=== PATIENT | female | born 1975 | race Caucasian/White ===

== ENCOUNTER 2019-09-20 12:58 | Emergency (ER) | payer OTHER ==
--- OUTSIDE RECORDS SUMMARY | 2019-09-20 13:21 | XMS REPORT | Continuity of Care Document ---
:1975 External Reference #:[id number] Author Name AMALIA Braun (transmitted by agent of provider Connie Robbins) Address [address] [place] [address] Care Team Providers Name Role Phone Jon Arzate MD - Family Medicine Care Team Information Machine Cloth Measurer Ankita Godinez FNP - Family Care Team Information Machine Cloth Measurer [phone] Morenita Aguilar F.N.P. - Family Care Team Information Machine Cloth Measurer Problems Active Problems Provider Date Chronic polyarticular juvenile rheumatoid Kamar Dominguez M.D. Onset: 2011 arthritis Myalgia & Myositis Unspecified Kamar Dominguez M.D. Onset: 09/14/2012 Medications Prison (Current) Use Encounter Kamar Dominguez M.D. Onset: Dyssomnia Gabriella Couch MD Onset: 12/20/2014 Restless legs Gabriella Couch MD Onset: 12/20/2014 Taking medication AMALIA Braun Onset: 12/31/2014 Obstructive sleep apnea syndrome Gabriella Couch MD Onset: 02/05/2015 Social History Type Date Description Comments Sex Unknown Tobacco Use Start: Unknown Never Smoked Cigarettes Smoking Status Reviewed: 09/11/19 Never Smoked Cigarettes ETOH Use Occasionally consumes alcohol Tobacco Use Start: Unknown Patient has never smoked Recreational Drug Use Denies Drug Use Exercise Type/Frequency Exercises regularly Allergies, Adverse Reactions, Alerts Active Allergies Reaction Severity Comments Date Penicillin 02/18/2011 steroids tachycardia 02/18/2011 Medications Active Medications SIG Qnty Indications Ordering Provider Date Prednisone take 2 tablets 28tabs M06.09 Chata Gaylek, 09/11/2019 5mg Tablets once daily for 1 [employer] week then 1 tablet once daily for 2 weeks than d/c Methotrexate Take 5 Tablets 20tabs M06.09 Chata Mcclain, 08/10/2018 2.5mg By Mouth Every [employer] Tablets Week Z79.899 Fluocinonide twice a day as 15gm R21 Chata Mcclain, 07/02/2014 0.05% Cream needed for rash [employer] Lyrica 1-2 tab po qday 30caps M79.7 Chata Mcclain, 12/14/2013 50mg Capsules [employer] Restasis instill 1 drop 30units M35.00 Chata Mcclain, 02/18/2011 0.05% Emulsion in both eyes [employer] twice a day Folic Acid take 1 tablet 90tabs Z79.899 Chata Gaylek, 02/18/2011 1mg Tablets daily [employer] Hydroxychloroquine Sulfate Take One Tablet 180tabs M06.09 Chata Gaylek, 02/18/2011 200mg By Mouth Twice A [employer] Tablets Day Z79.899 Oxaprozin take one tablet by 60tabs M08.3 [facility] [employer] 02/18/2011 600mg Tablets mouth twice a day as needed Z79.899 M06.09 Turmeric take one capsule/tablet daily Unknown 500mg Capsules by mouth Bupropion HCL ER Unknown 300mg Tablets ER 12HR Desonide Unknown 0.05% Cream Fish Oil 1 by mouth every day Unknown 1000mg Capsules Vitamin D-3 1 by mouth every day Unknown 1000Unit Capsules Claritin 1 by mouth every day as needed Unknown 10mg Capsules Ibuprofen 1 by mouth three times a day Unknown 600mg Tablets as needed Multi Vitamin 1 po qd 30tabs Unknown Tablets Clonazepam 1 po bid 60tabs Unknown 0.5mg Tablets Immunizations CPT Code Status Date Vaccine Lot # [id number] Given 09/11/2019 Influenza Virus Vaccine, Quadrivalent, Split, [id number] Preservative Free 84918 Given 09/05/2017 Influenza Virus Vaccine, Quadrivalent, Split, Preservative Free 15813 Given 08/11/2016 Influenza Virus Vaccine, Quadrivalent, Split, [id number] Preservative Free 64837 Given 09/05/2013 Flu Vaccine Split Virus Preservative Free For Indiv 3Yr Older Vital Signs Date Vital Result Comment 09/11/2019 2:32pm Weight 141.00 lb Heart Rate 88 /min BP Systolic Sitting 115 mmHg right arm reg cuff BP Diastolic Sitting 69 mmHg right arm reg cuff O2 % BldC Oximetry 100 % room air 04/10/2019 4:10pm Heart Rate 90 /min Results Test Date Facility Test Result H/L Range Note CBC Auto 07/07/2019 [facility] White Blood 3.8 10^3/uL Normal 3.5-10.[address] [place] [address] [phone] Red Blood Count 4.69 10^6/uL Normal 3.70-4.87 Hemoglobin 15.5 g/dL Normal 12.0-16.0 Hematocrit 45 % Normal 35-47 Mean Corpuscular Volume 97 fL Normal 80-97 Mean Corpuscular Hemoglobin 33 pg High 27-31 Mean Corpuscular HGB Conc 34 g/dL Normal 31-36 Red Cell Distribution Width 14 % Normal 10-15 Platelet Count 196 10^3/uL Normal 150-450 Mean Platelet Volume 9.0 fL Normal 7.4-10.4 Abs Neutrophils 2.1 10^3/uL Normal 1.5-7.7 Abs Lymphocytes 1.2 10^3/uL Normal 1.0-4.8 Abs Monocytes 0.4 10^3/uL Normal 0-0.8 Abs Eosinophils 0.0 10^3/uL Normal 0-0.6 Abs Basophils 0.0 10^3/uL Normal 0-0.2 Abs Nucleated RBC 0.0 10^3/uL Granulocyte % 56.3 % Lymphocyte % 30.9 % Monocyte % 11.3 % Eosinophil % 1.1 % Basophil % 0.4 % Nucleated Red Blood Cells % 0.0 Comp Metabolic 07/07/2019 [facility] Sodium 139 mmol/L Normal 135-[address] [place] [address] [phone] Potassium 4.2 mmol/L Normal 3.5-5.0 Chloride 104 mmol/L Normal 101-111 Co2 Carbon Dioxide 31 mmol/L Normal 22-32 Anion Gap 4 mmol/L Normal 2-11 Glucose 68 mg/dL Low 70-100 Blood Urea Nitrogen 13 mg/dL Normal 6-24 Creatinine 0.86 mg/dL Normal 0.51-0.95 BUN/Creatinine Ratio 15.1 Normal 8-20 Calcium 9.8 mg/dL Normal 8.6-10.3 Total Protein 6.1 g/dL Low 6.4-8.9 Albumin 4.1 g/dL Normal 3.2-5.2 Globulin 2.0 g/dL Normal 2-4 Albumin/Globulin Ratio 2.1 Normal 1-3 Total Bilirubin 0.50 mg/dL Normal 0.2-1.0 Alkaline Phosphatase 31 U/L Low 34-104 Alt 23 U/L Normal 7-52 Ast 26 U/L Normal 13-39 Egfr Non- 71.0 >60 Egfr 86.0 >60 1 Laboratory test 07/07/2019 [facility] C Reactive < 1.00 Normal <8.01 [address] Protein mg/[place] [address] [phone] Erythrocyte Sed Rate 4 mm/Hr Normal 0-19 3 CBC W/Auto 04/06/2019 [facility] White Blood 5.3 10^3/uL Normal 3.5-10.[address] [place] [address] [phone] Red Blood Count 4.44 10^6/uL Normal 3.70-4.87 Hemoglobin 14.6 g/dL Normal 12.0-16.0 Hematocrit 43 % Normal 35-47 Mean Corpuscular Volume 97 fL Normal 80-97 Mean Corpuscular Hemoglobin 33 pg High 27-31 Mean Corpuscular HGB Conc 34 g/dL Normal 31-36 Red Cell Distribution Width 14 % Normal 10.5-15 Platelet Count 218 10^3/uL Normal 150-450 Mean Platelet Volume 8.5 fL Normal 7.4-10.4 Abs Neutrophils 3.4 10^3/uL Normal 1.5-7.7 Abs Lymphocytes 1.4 10^3/uL Normal 1.0-4.8 Abs Monocytes 0.4 10^3/uL Normal 0-0.8 Abs Eosinophils 0.0 10^3/uL Normal 0-0.6 Abs Basophils 0.0 10^3/uL Normal 0-0.2 Abs Nucleated RBC 0.0 10^3/uL Granulocyte % 64.3 % Lymphocyte % 26.9 % Monocyte % 7.9 % Eosinophil % 0.6 % Basophil % 0.3 % Nucleated Red Blood Cells % 0.0 CMP Panel 04/06/2019 [facility] Sodium 138 mmol/L Normal 135- [address] [place] [address] [phone] Potassium 4.2 mmol/L Normal 3.5-5.0 Chloride 106 mmol/L Normal 101-111 Co2 Carbon Dioxide 29 mmol/L Normal 22-32 Anion Gap 3 mmol/L Normal 2-11 Glucose 81 mg/dL Normal 70-100 Blood Urea Nitrogen 10 mg/dL Normal 6-24 Creatinine 0.88 mg/dL Normal 0.51-0.95 BUN/Creatinine Ratio 11.4 Normal 8-20 Calcium 9.4 mg/dL Normal 8.6-10.3 Total Protein 6.4 g/dL Normal 6.4-8.9 Albumin 4.3 g/dL Normal 3.2-5.2 Globulin 2.1 g/dL Normal 2-4 Albumin/Globulin Ratio 2.0 Normal 1-3 Total Bilirubin 0.40 mg/dL Normal 0.2-1.0 Alkaline Phosphatase 33 U/L Low 34-104 Alt 26 U/L Normal 7-52 Ast 29 U/L Normal 13-39 Egfr Non- 69.2 >60 Egfr 83.7 >60 4 Laboratory test 04/06/2019 [facility] C Reactive < 1.00 Normal <8.[address] Protein mg/[place] [address] [phone] Erythrocyte Sed Rate 1 mm/Hr Normal 0-19 1 Because ethnic data is not always readily available, this report includes an eGFR for both -Americans and non- Americans. The National Kidney Disease Education Program (NKDEP) does not endorse the use of the MDRD equation for patients that are not between the ages of 18 and 70, are , have extremes of body size, muscle mass, or nutritional status, or are non- or non-. According to the National Kidney Foundation, irrespective of diagnosis, the stage of the disease is based on the level of kidney function: Stage Description GFR(mL/min/1.73 m(2)) 1 Kidney damage with normal or decreased GFR 90 2 Kidney damage with mild decrease in GFR 60-89 3 Moderate decrease in GFR 30-59 4 Severe decrease in GFR 15-29 5 Kidney failure <15 (or dialysis) 2 ORDERED [id number] EXPIRES [id number] 3 ORDERED [id number] EXPIRES [id number] 4 Because ethnic data is not always readily available, this report includes an eGFR for both -Americans and non- Americans. The National Kidney Disease Education Program (NKDEP) does not endorse the use of the MDRD equation for patients that are not between the ages of 18 and 70, are , have extremes of body size, muscle mass, or nutritional status, or are non- or non-. According to the National Kidney Foundation, irrespective of diagnosis, the stage of the disease is based on the level of kidney function: Stage Description GFR(mL/min/1.73 m(2)) 1 Kidney damage with normal or decreased GFR 90 2 Kidney damage with mild decrease in GFR 60-89 3 Moderate decrease in GFR 30-59 4 Severe decrease in GFR 15-29 5 Kidney failure <15 (or dialysis) Procedures Date Code Description Status 06/12/2009 [id number] Diabetic Foot Exam Completed Medical Devices Description No Information Available Encounters Type Date Location Provider Dx Diagnosis Office Visit 04/10/2019 Rheumatology Chata Mcclain, M06.09 Rheumatoid 3:[facility] arthritis w/o rheumatoid factor, multiple sites Z79.899 Other terminal operations manager (current) drug therapy R00.0 Tachycardia, unspecified F41.9 Anxiety disorder, unspecified M35.00 Sicca syndrome, unspecified M25.562 Pain in left knee Assessments Date Code Description Provider 09/11/2019 M35.00 Sicca syndrome, unspecified CHRISTOPHE BraunP 09/11/2019 M79.7 Fibromyalgia AMALIA Braun 09/11/2019 M25.562 Pain in left knee CHRISTOPHE BraunP 09/11/2019 M54.2 Cervicalgia CHRISTOPHE BraunP 09/11/2019 M25.579 Pain in unspecified ankle and joints of AMALIA Braun unspecified foot 09/11/2019 Z79.899 Other terminal operations manager (current) drug therapy Chata Mcclain, [employer] 09/11/2019 Z23 Encounter for immunization Chata Mcclain, [employer] 04/10/2019 M06.09 Rheumatoid arthritis without rheumatoid factor, Chata Mcclain, [employer] multiple sit 04/10/2019 Z79.899 Other terminal operations manager (current) drug therapy Chata Mcclain, [employer] 04/10/2019 R00.0 Tachycardia, unspecified Chata Mcclain, [employer] 04/10/2019 F41.9 Anxiety disorder, unspecified Chata Mcclain, [employer] 04/10/2019 M35.00 Sicca syndrome, unspecified Chata Mcclain, [employer] 04/10/2019 M25.562 Pain in left knee JennamendelAMALIA Gamble Plan of Treatment Future Appointment(s):12/18/2019 3:30 pm - MarlyAMALIA Gamble at [facility]09/11/2019 - Chata McclainCHRISTOPHEPM35.00 Sicca syndrome, qrnmjntahqdU80.7 PdsprakyashwG25.562 Pain in left kneeNew Therapy:Physical TherapyComments:Will get xrays if the PT is not opgidpukwN10.2 CervicalgiaComments:Cold treatment: has a number of physiologic effects that are therapeutic. Local application of cold causes vasoconstriction, lowers cell metabolism, decreases extensibility of collagen tissue, decreases muscle contractility, decreases nerve conduction velocity, and increases the pain threshold. The spasticity of the muscle is reduced because local cold affects the muscle spindle's responsiveness to stretching. Local cold also has a direct effect on the conduction velocities of the afferent and efferent fibers, which further decreases muscle spasm.M25.579 Pain in unspecified ankle and joints of unspecified footReferral:Cyn Doshi DPM, FpxbvnsgtpS05.899 Other terminal operations manager (current) drug [id number] Encounter for immunization Functional Status Description No Information Available Mental Status Description No Information Available Referrals Refer to Reason for Referral Status Appt Date Cyn Doshi DPM Created [address] [address] [phone]
--- NOTE | 2019-09-20 14:28 | ED ---
Neck Pain - HPI Summary HPI Summary: Patient is a 44-year-old female who presents emergency Department with complaints of neck pain, paresthesias and arm weakness. Patient notes that she has had issues with her neck in the past and has had injections in the pain clinic. Patient states over the last few days neck pain has increased she's noticed that her arms are weak. Patient also has history of rheumatoid arthritis and is currently on methotrexate. Patient states she recently had an RA flare and was on a course of prednisone last week. Patient states prednisone was given her tachycardia so she discontinued it. Patient otherwise denies recent illness, fever, headache, chest pain, shortness of breath. Symptoms are moderate in severity. No current modifying factors. - History of Current Complaint Chief Complaint: EDExtremityUpper Stated Complaint: PAIN AND NUMBNESS IN RT ARM/LEFT HAND PER PT Time Seen by Provider: 09/20/19 13:54 Hx Obtained From: Patient Pain Intensity: 6 - Allergies/Home Medications Allergies/Adverse Reactions: Allergies Allergy/AdvReac Type Severity Reaction Status Date / Time Penicillins Allergy Unknown Verified 09/20/19 14:16 Reaction Details prednisone Allergy Tachycardia Verified 09/20/19 13:05 Home Medications: Home Medications BuPROPion XL* [Bupropion XL*] 300 mg PO DAILY 09/20/19 [History Confirmed ] Folic Acid TAB* [Folvite TAB*] 1 mg PO DAILY 09/20/19 [History Confirmed ] Hydroxychloroquine TAB* [Plaquenil TAB*] 200 mg PO BID 09/20/19 [History Confirmed 09/20/19] Methotrexate TAB* 12.5 mg PO WEEKLY 09/20/19 [History Confirmed 09/20/19] Oxaprozin [Daypro] 600 mg PO BID 09/20/19 [History Confirmed 09/20/19] Pregabalin CAP(*) [Lyrica CAP(*)] 50 mg PO DAILY 09/20/19 [History Confirmed ] clonazePAM TAB(*) [KlonoPIN TAB(*)] 0.5 mg PO BID PRN 09/20/19 [History Confirmed 09/20/19] predniSONE TAB* [Deltasone TAB*] 5 mg PO DAILY 09/20/19 [History Confirmed 09/20] PMH/Surg Hx/FS Hx/Imm Hx Previously Healthy: Yes Neurological History: Reports: Other Neuro Impairments/Disorders - RA - Cancer History Hx Chemotherapy: No Hx Radiation Therapy: No Infectious Disease History: No Infectious Disease History: Denies: Traveled Outside the [place] in Last 30 Days - Family History Known Family History: Positive: Non-Contributory - Social History Occupation: Employed Full-time Lives: With Family Alcohol Use: Weekly Substance Use Type: Reports: None Smoking Status (MU): Never Smoked Tobacco Review of Systems Constitutional: Negative Negative: Fever Eyes: Negative Cardiovascular: Negative Respiratory: Negative Gastrointestinal: Negative Positive: Other - neck pain Skin: Negative Negative: Rash Positive: Weakness, Paresthesia All Other Systems Reviewed And Are Negative: Yes Physical Exam Triage Information Reviewed: Yes Vital Signs On Initial Exam: Initial Vitals Temp Pulse Resp BP Pulse Ox 97.3 F 101 18 185/98 99 09/20/19 13:04 09/20/19 13:04 09/20/19 13:04 09/20/19 13:04 09/20/19 13:04 Vital Signs Reviewed: Yes Appearance: Positive: Well-Appearing - Patient sitting in chair in no acute distress. Pleasant. Skin: Positive: Warm, Dry Head/Face: Positive: Normal Head/Face Inspection Eyes: Positive: Normal, EOMI, MATT Neck: Positive: Supple, Other: - Midline and paraspinal tenderness noted. Tylenol Respiratory/Lung Sounds: Positive: Clear to Auscultation, Breath Sounds Present Cardiovascular: Positive: Normal, RRR Musculoskeletal: Positive: Other - Good palpable bilateral radial pulse. 3 out of 5 strength in bilateral upper extremities. No sensory deficits. Neurological: Positive: Normal, CN Intact II-III Procedures - Sedation Patient Received Moderate/Deep Sedation with Procedure: No Diagnostics - Vital Signs Vital Signs Temp Pulse Resp BP Pulse Ox 09/20/19 13:04 97.3 F 101 18 185/98 99 - Laboratory Result Diagrams: 09/20/19 15:10 09/20/19 15:10 Lab Statement: Any lab studies that have been ordered have been reviewed, and results considered in the medical decision making process. Neck Course/Dx - Course Course Of Treatment: Patient present with a history of rheumatoid arthritis, neck pain and weakness and paresthesias to arms. Case discussed with Dr. Abarca who recommends MRI of cervical spine to evaluate for potential cardiac compression, epidural abscess given history of methotrexate and arm weakness. Basic labs and appointment her markers were discussed as well. IMPRESSION: Degenerative disc disease at multiple levels. At C4-C5 spondylitic ridge. flattens the thecal sac with no foraminal stenosis. At C5-C6 spondylitic ridge with right uncovertebral hypertrophy results in mild spinal. stenosis and right foraminal stenosis. At C6-C7 spondylitic ridge with right uncovertebral joint hypertrophy results in mild. central stenosis and right foraminal stenosis. Degenerative disc disease at C7-T1. Labs are unremarkable. Pt. states she has had medrol dose pack in the past and has tolerated it better than prednisone. Will place on medrol and flexeril. Advised warm compresses. To f.u with her RA physician for pain clinic or neurosx referal. Will return to ER if sxs change or worsen. pt. understands and agrees with plan. - Diagnoses Differential Dx/HQI/PQRI: Positive: Arthritis, Cervical Fracture, Dystonia, Sprain, Strain Provider Diagnoses: Cervical radiculopathy, Central stenosis of spinal canal Discharge ED - Sign-Out/Discharge Documenting (check all that apply): Patient Departure - Discharge Plan Condition: Good Disposition: HOME Prescriptions: Cyclobenzaprine TAB* [Flexeril 10 MG TAB*] 10 mg PO TID PRN #12 tab PRN Reason: Pain - Moderate methylPREDNISolone [Medrol Dosepak 4 MG*] 0 mg PO .SEE GIANCARLO INSTRUCTION #1 tab Patient Education Materials: Cervical Spinal Stenosis (ED), Cervical Radiculopathy (ED) Forms: *Work Release Referrals: Morenita Aguilar NP [Primary Care Provider] - Katheryn Lema MD [Medical Doctor] - Additional Instructions: Schedule a follow up appointment with your RA physician You may benefit from seeing pain clinic again or neurosurgery Medication as directed Apply warm compresses Return to ER if symptoms change or worsen - Billing Disposition and Condition Condition: GOOD Disposition: Home
[2019-09-20 15:16] LABS: ABS Eosinophils 0.1 10^3/ul (0-0.6); ABS Lymphocytes 1.3 10^3/ul (1.0-4.8); ABS Monocytes 0.5 10^3/ul (0-0.8); ABS Neutrophils 3.2 10^3/ul (1.5-7.7); Eosinophil % 1.2 %; Hematocrit 46 % (35-47); Hemoglobin 15.6 g/dL (12.0-16.0); Lymphocyte % 26.2 %; Mean Corpuscular HGB Conc 34 g/dL (31-36); Mean Corpuscular Hemoglobin 33 pg (27-31); Mean Corpuscular Volume 97 fL (80-97); Mean Platelet Volume 8.3 fL (7.4-10.4); Platelet Count 229 10^3/uL (150-450); Red Blood Count 4.69 10^6 /uL (3.70-4.87); Red Cell Distribution Width 13 % (10-15)
[2019-09-20 15:41] LABS: ALT 22 U/L (7-52); AST 26 U/L (13-39); Albumin/Globulin Ratio 1.6 (1-3); Alkaline Phosphatase 29 U/L (34-104); Anion Gap 4 mmol/L (2-11); BUN/Creatinine Ratio 17.1 (8-20); Blood Urea Nitrogen 13 mg/dL (6-24); C Reactive Protein < 1.00 mg/L (<8.01); CO2 Carbon Dioxide 30 mmol/L (22-32); Calcium 9.4 mg/dL (8.6-10.3); Chloride 106 mmol/L (101-111); EGFR African American 99.1 (>60); EGFR Non-African American 81.9 (>60); Globulin 2.5 g/dL (2-4); Glucose 88 mg/dL (70-100); Sodium 140 mmol/L (135-145); Total Protein 6.5 g/dL (6.4-8.9)
[2019-09-20 17:39] VITALS: BP 133/81
[2019-09-20 18:07] LABS: Erythrocyte Sed Rate 3 mm/Hr (0-19)
== END 2019-09-20 17:38 | disposition home or self-care (01) ==
LOC: ED 12:58
DX: M54.12 Radiculopathy, cervical region (principal); M48.00 Spinal stenosis, site unspecified; M50.33 Other cervical disc degeneration, cervicothoracic region; M06.9 Rheumatoid arthritis, unspecified; Z79.899 Other long term (current) drug therapy; Z88.0 Allergy status to penicillin; Z88.8 Allergy status to other drugs, medicaments and biological substances
CPT/HCPCS: 36415; 72141; 80053; 85025; 85652; 86140; 99282